=== PATIENT | female | born 1990 | race American Indian/Alaskan Native ===

== ENCOUNTER 2021-09-06 09:07 | Outpatient (CLI) | payer OTHER, SELFPAY ==
[2021-09-06 10:05] LABS: Alanine Aminotransferase 16 U/L (4-35); Albumin Level 4.7 g/dL (3.5-5.1); Alkaline Phosphatase 52 U/L (38-126); Anion Gap 8 mmol/L (8-16); Aspartate Amino Transferase 33 U/L (14-36); Bilirubin,Total 0.8 mg/dL (0.2-1.3); Blood Urea Nitrogen 11 mg/dL (7-17); Calcium 9.2 mg/dL (8.4-10.2); Carbon Dioxide 26 mmol/L (22-30); Chloride 106 mmol/L (98-107); Estimated Glomerular Filt Rate > 60; Glucose 97 mg/dL (65-110); Potassium 3.6 mmol/L (3.4-5.0); Sodium 140 mmol/L (137-145)
--- NOTE | 2021-09-06 10:05 | ECG_ITS ---
Measurements Intervals [place] Rate: 67 P: 66 MN: 117 QRS: 34 QRSD: 81 T: 41 QT: 348 QTc: 370 Interpretive Statements SINUS RHYTHM WITH SINUS ARRHYTHMIA WITH SHORT MN INTERVAL Borderline ECG NO PREVIOUS ECG AVAILABLE FOR COMPARISON Electronically Signed On 09-06-2021 12:19:46 CDT by Karl Hanks M.D.
[2021-09-06 10:07] LABS: Prothrombin Time 12.4 Seconds (11.1-14.7)
[2021-09-06 10:08] LABS: Add Urine Microscopic? YES; Appearance Urine Cloudy (Clear); Bilirubin Urine Negative (Negative); Blood Urine Negative (Negative); Color Urine Yellow (Yellow); Glucose Urine UA Negative (Negative); Hemoglobin A1C 4.9 % (<5.7); Ketones Urine Negative (Negative); Leukocyte Esterase Ur 1+ LEU/UL (NEGATIVE); Mucus Urine Rare /lpf; Nitrate Urine Negative (Negative); Partial Thromboplastin Time 25.6 SECONDS (22.3-36.8); Protein Urine Negative (Negative); RBC Urine 0-2 /hpf (0-2); Specific Grav Ur 1.011 (1.001-1.035); Squamous Epithelial Cell Urine Moderate /hpf (Few); Urobilinogen Urine Negative mg/dL (<2.0)
[2021-09-06 10:16] LABS: Basophils Percent Auto 0.6 % (0.2-1.2); Eosinophils Absolute Auto 0.1 K/mm3 (0-0.3); Eosinophils Percent Auto 2.9 % (0-4.4); Hematocrit 40.4 % (37.0-47.0); Hemoglobin 13.8 g/dL (12.0-15.0); Lymphocytes Absolute Auto 1.63 K/mm3 (0.9-3.2); Lymphocytes Percent Auto 33.5 % (18.3-44.2); Mean Corpuscular HGB Conc 34.2 g/dl (32-36); Mean Corpuscular Hemoglobin 31.9 pg (26-34); Mean Corpuscular Volume 93.5 fl (80-100); Mean Platelet Volume 10.6 fl (7.4-10.4); Monocytes Absolute Auto 0.3 K/mm3 (0.1-0.6); Neutrophils Absolute Auto 2.7 K/mm3 (1.3-6.7); Platelet Count Result 270 k/mm3 (150-375); Red Blood Count 4.32 M/mm3 (4.2-5.4); Red Cell Distribution Width 12.5 % (11.5-14.5); White Blood Count 4.9 K/mm3 (4.5-10.0)
[2021-09-06 10:21] LABS: Bacteria Urine Trace /hpf
[2021-09-06 10:23] LABS: Beta HCG Quantitative < 2.39 mIU/ML
[2021-09-06 10:36] LABS: Total Triiodothyronine (T3) 1.33 NG/ML (0.97-1.69)
[2021-09-06 10:45] LABS: HIV 1/2 Ab P24 Ag Result Negative (Negative)
== END 2021-09-06 09:08 | disposition home or self-care (01) ==
DX: Z01.818 Encounter for other preprocedural examination (principal)
CPT/HCPCS: 36415; 80053; 81001; 83036; 84436; 84443; 84480; 84702; 85025; 85610; 85730; 86703; 93005; G0432

== ENCOUNTER 2021-09-13 09:56 | Outpatient (CLI) | payer OTHER, SELFPAY ==
[2021-09-13 10:30] LABS: Add Urine Microscopic? YES; Appearance Urine Cloudy (Clear); Bilirubin Urine Negative (Negative); Blood Urine Negative (Negative); Color Urine Yellow (Yellow); Glucose Urine UA Negative (Negative); Ketones Urine Negative (Negative); Leukocyte Esterase Ur Negative LEU/UL (NEGATIVE); Mucus Urine Rare /lpf; Nitrate Urine Negative (Negative); Protein Urine Negative (Negative); Specific Grav Ur 1.024 (1.001-1.035); Squamous Epithelial Cell Urine Moderate /hpf (Few); Urobilinogen Urine Negative mg/dL (<2.0); WBC Urine 0-3 /hpf (0-3)
== END 2021-09-13 09:57 | disposition home or self-care (01) ==
DX: Z01.812 Encounter for preprocedural laboratory examination (principal)
CPT/HCPCS: 81001

== ENCOUNTER 2022-05-08 10:55 | Outpatient (CLI) | payer OTHER, SELFPAY ==
[2022-05-08 11:32] LABS: Basophils Percent Auto 0.2 % (0.2-1.2); Eosinophils Absolute Auto 0.1 K/mm3 (0-0.3); Eosinophils Percent Auto 1.5 % (0-4.4); Hematocrit 32.4 % (37.0-47.0); Hemoglobin 11.4 g/dL (12.0-15.0); Immature Granulocyte Absolute 0.03 K/mm3 (0.00-0.031); Immature Granulocyte Percent A 0.4 % (0-0.5); Lymphocytes Absolute Auto 1.64 K/mm3 (0.9-3.2); Lymphocytes Percent Auto 19.9 % (18.3-44.2); Mean Corpuscular HGB Conc 35.2 g/dl (32-36); Mean Corpuscular Hemoglobin 31.8 pg (26-34); Mean Corpuscular Volume 90.3 fl (80-100); Mean Platelet Volume 9.8 fl (7.4-10.4); Monocytes Absolute Auto 0.6 K/mm3 (0.1-0.6); Monocytes Percent Auto 6.9 % (2.6-8.5); Neutrophils Absolute Auto 5.9 K/mm3 (1.3-6.7); Neutrophils Percent Auto 71.1 % (45.5-73.1); Platelet Count Result 270 k/mm3 (150-375); Red Blood Count 3.59 M/mm3 (4.2-5.4); Red Cell Distribution Width 12.9 % (11.5-14.5); White Blood Count 8.2 K/mm3 (4.5-10.0)
[2022-05-08 12:27] LABS: HIV 1/2 Ab P24 Ag Result Negative (Negative)
[2022-05-08 13:06] LABS: Hepatitis B Surface Antigen Negative (Negative); Rubella IgG Antibody 54.3 IU/ML
[2022-05-08 15:31] LABS: Rapid Plasma Reagin Non-Reactive (NonReactive)
== END 2022-05-08 10:56 | disposition home or self-care (01) ==
LOC: ANHLAB 10:57
PROVIDERS: Visit Provider Student in an Organized Health Care Education/Training Program
DX: N94.89 Other specified conditions associated with female genital organs and menstrual cycle (principal)
CPT/HCPCS: 36415; 84702; 85025; 85660; 86592; 86644; 86703; 86747; 86762; 86787; 86850; 86900; 86901; 87086; 87340; G0432

== ENCOUNTER 2022-05-30 12:40 | Outpatient (CLI) | payer OTHER, SELFPAY ==
[2022-06-06 14:46] LABS: SMA 2.0 RISK VARIANT NOT DETECTED
[2022-06-12 14:11] LABS: SMA Results Received Yes
== END 2022-05-30 12:41 | disposition home or self-care (01) ==
LOC: ANHLAB 12:42
PROVIDERS: Visit Provider Student in an Organized Health Care Education/Training Program
DX: N94.89 Other specified conditions associated with female genital organs and menstrual cycle (principal)
CPT/HCPCS: 36415; 81329

== ENCOUNTER 2022-07-16 10:03 | Outpatient (CLI) | payer OTHER, SELFPAY ==
[2022-07-16 11:19] LABS: Hematocrit 30.6 % (37.0-47.0); Hemoglobin 10.4 g/dL (12.0-15.0); Mean Corpuscular Hemoglobin 32.2 pg (26-34); Mean Corpuscular Volume 94.7 fl (80-100); Mean Platelet Volume 9.8 fl (7.4-10.4); Platelet Count Result 261 k/mm3 (150-375); Red Blood Count 3.23 M/mm3 (4.2-5.4); Red Cell Distribution Width 13.3 % (11.5-14.5); White Blood Count 9.6 K/mm3 (4.5-10.0)
[2022-07-16 11:32] LABS: Glucose 1 Hour PP 50gm Dose 115 mg/dL
[2022-07-16 12:11] LABS: HIV 1/2 Ab P24 Ag Result Negative (Negative)
== END 2022-07-16 10:04 | disposition home or self-care (01) ==
LOC: ANHLAB 10:04
PROVIDERS: Visit Provider Student in an Organized Health Care Education/Training Program
DX: O09.90 Supervision of high risk pregnancy, unspecified, unspecified trimester (principal); Z3A.00 Weeks of gestation of pregnancy not specified
CPT/HCPCS: 36415; 82947; 85027; 86703; G0432

== ENCOUNTER 2022-08-22 07:03 | Observation (INO) | payer OTHER, SELFPAY ==
[2022-08-22 07:28] VITALS: BP 117/77; PULSE 83
[2022-08-22 07:30] VITALS: BP 105/85; PULSE 81
--- NOTE | 2022-08-22 07:41 | PM.OBTRLD ---
OB - Triage/Final Diagnosis Visit Information Date of evaluation: 08/22/22 Reason for evaluation: threatened labor Comments/Additional reasons for admission: I have assessed the risk for this patient, Mau Torres, and determined that she would benefit from observation care. Evaluation Vital signs: Vital Signs - 24 hr 08/22/22 07:28 08/22/22 07:30 Pulse Rate 83 81 Blood Pressure 117/77 105/85
[2022-08-22 07:45] VITALS: BP 114/78; PULSE 76
[2022-08-22 07:49] VITALS: BMI 28.5
--- NOTE | 2022-08-22 07:50 | OBADM ---
This patient, Mau Torres, admitted to the OB room OB Post 117 for observation. Patient/family oriented to hospital policies and general routines including ID bracelet, bed and alarms, visiting hours, pain management, procedures, bathroom and other care routines, personal items, smoking policy, room service/diet, and visiting hours. Patient/Family are encouraged to report perceived risks to care and to ask questions if they do not understand what they are told or what they should do. Pt. presents with reports of RLQ pain that is constant since Wednesday, began intermittently on . Pt. denies any falls or trauma, vaginal bleeding and leaking of fluid. States she might be having a contraction here or there but not sure. Pt. states she has been recently treated for yeast infection and has a second dose to take if needed. Urine collected and EFM X2 applied to monitor.
[2022-08-22 07:51] LABS: Appearance Urine Slightly Cloudy (Clear); Bilirubin Urine Negative (Negative); Blood Urine Negative (Negative); Color Urine Yellow (Yellow); Glucose Urine UA Negative (Negative); Ketones Urine Negative (Negative); Leukocyte Esterase Ur 3+ LEU/UL (Negative); Nitrate Urine Negative (Negative); Protein Urine Negative (Negative); Specific Grav Ur 1.025 (1.001-1.035); Urobilinogen Urine 0.2 mg/dL (<2.0)
[2022-08-22 07:58] LABS: Bacteria Urine Trace /hpf; Mucus Urine Rare /lpf; Squamous Epithelial Cell Urine Many /hpf (Few); WBC Urine 51-75 /hpf
[2022-08-22 08:00] VITALS: BP 125/75; PULSE 82
[2022-08-22 08:03] LABS: Add Urine Microscopic? YES
--- NOTE | 2022-08-22 08:15 | PC.NURSE ---
0618--Phone call to Dr. Yan re: pt's presence and reports of abdominal pain, assessment, and urine results. Orders to DC home with instructions for rest and hydration.
== END 2022-08-22 08:37 | disposition home or self-care (01) ==
PROVIDERS: Admitting Provider Student in an Organized Health Care Education/Training Program; Visit Provider Student in an Organized Health Care Education/Training Program
DX: O47.03 False labor before 37 completed weeks of gestation, third trimester (principal); O26.893 Other specified pregnancy related conditions, third trimester; R10.9 Unspecified abdominal pain; Z3A.34 34 weeks gestation of pregnancy
CPT/HCPCS: 81001; 87086; G0378; G0379

== ENCOUNTER 2022-09-23 10:59 | Inpatient (IN) | payer OTHER, SELFPAY ==
[2022-09-23] VITALS (77 sets, daily range): BP systolic 103–166; BP diastolic 63–139; PULSE 70–252; RESP 16–18; TEMP 36.4–37.2; O2SAT 91–100; BMI 30.8
[2022-09-23] MEDS: LACTATED RINGERS 1,000 ML 125 ML IV CONT ×2 (11:33→12:18)
[2022-09-23] MEDS: AMPICILLIN 2 GM/NS 100 ML 2 GM/100 ML BAG IVPB (11:33)
--- NOTE | 2022-09-23 11:48 | WPDHPUPDATE1 ---
History and Physical Update Update Date/Time: 09/23/22 11:48 32-year-old at 38w0d who presents in labor. she denies any vaginal bleeding or leakage of fluid. History and Physical has been reviewed, including an updated exam of the patient. There are NO changes in the patient's condition. Risks, benefits, and alternatives have been discussed and questions answered. Patient agrees to proceed with procedure. A/P: Admit to L&D Routine admission orders Rh positive GBS positive, will start antibiotics Cervix 6.5 cm Regular contractions on toco heart tones category 1 Expected management
[2022-09-23 11:54] LABS: Basophils Percent Auto 0.4 % (0.2-1.2); Eosinophils Absolute Auto 0.1 K/mm3 (0-0.3); Eosinophils Percent Auto 1.1 % (0-4.4); Hematocrit 36.8 % (37.0-47.0); Hemoglobin 12.1 g/dL (12.0-15.0); Immature Granulocyte Absolute 0.11 K/mm3 (0.00-0.031); Immature Granulocyte Percent A 1.1 % (0-0.5); Lymphocytes Absolute Auto 1.98 K/mm3 (0.9-3.2); Lymphocytes Percent Auto 19.4 % (18.3-44.2); Mean Corpuscular HGB Conc 32.9 g/dl (32-36); Mean Corpuscular Hemoglobin 32.6 pg (26-34); Mean Corpuscular Volume 99.2 fl (80-100); Mean Platelet Volume 10.5 fl (7.4-10.4); Monocytes Absolute Auto 0.9 K/mm3 (0.1-0.6); Monocytes Percent Auto 8.7 % (2.6-8.5); Neutrophils Absolute Auto 7.1 K/mm3 (1.3-6.7); Neutrophils Percent Auto 69.3 % (45.5-73.1); Platelet Count Result 197 k/mm3 (150-375); Red Blood Count 3.71 M/mm3 (4.2-5.4); Red Cell Distribution Width 13.5 % (11.5-14.5); White Blood Count 10.2 K/mm3 (4.5-10.0)
--- NOTE | 2022-09-23 12:19 | WPDANESEPP ---
Anes - Eval Pre Procedure Procedure: labor epidural Date/Time: 09/23/22 12:20 Preop Diagnosis: labor pain Pre Op Diagnosis: contractions Patient Data Age: 32 Gender: F Height: Weight: Last Vital Signs Pulse 78 09/23/22 12:15 BP 137/108 H 09/23/22 12:15 O2 Del Method Room Air 09/23/22 11:40 Allergies Allergy/AdvReac Type Severity Reaction Status Date / Time coconut oil Allergy Severe THROAT Verified 09/12/22 14:32 SWELLING,ITCHING clindamycin Allergy Intermediate Rash Verified 09/12/22 14:32 tramadol Allergy Hallucinati Verified 09/12/22 14:51 ng SHELLFISH Allergy Severe THROAT Uncoded 09/10/22 10:19 SWELLING,ITCHING Home Medications Medication Instructions Recorded Confirmed Type prenat.vits,kehinde,zon-cznn-layjw 1 tablet PO DAILY #30 tabs 07/22/22 09/23/22 Rx montelukast 10 mg tablet 10 mg PO DAILY #30 tabs 08/21/22 09/23/22 Rx (Singulair) ondansetron HCl 4 mg tablet 4 mg PO Q6H PRN nausea and 08/21/22 09/23/22 Rx vomiting #30 tabs albuterol sulfate 90 mcg/actuation 2 puff inhalation QID PRN Wheezing 09/12/22 09/12/22 History aerosol inhaler Laboratory Tests 09/23/22 09/23/22 11:30 11:30 WBC 10.2 K/mm3 H K/mm3 (4.5-10.0) RBC 3.71 M/mm3 L M/mm3 (4.2-5.4) Hgb 12.1 g/dL g/dL (12.0-15.0) Hct 36.8 % L % (37.0-47.0) MCV 99.2 fl fl (80-100) MCH 32.6 pg pg (26-34) MCHC 32.9 g/dl g/dl (32-36) RDW 13.5 % % (11.5-14.5) Plt Count 197 k/mm3 k/mm3 (150-375) MPV 10.5 fl H fl (7.4-10.4) Immature Gran % (Auto) 1.1 % H % (0-0.5) Neut % (Auto) 69.3 % % (45.5-73.1) Lymph % (Auto) 19.4 % % (18.3-44.2) Butts % (Auto) 8.7 % H % (2.6-8.5) Eos % (Auto) 1.1 % % (0-4.4) Baso % (Auto) 0.4 % % (0.2-1.2) Lymph # (Auto) 1.98 K/mm3 K/mm3 (0.9-3.2) Butts # (Auto) 0.9 K/mm3 H K/mm3 (0.1-0.6) Eos # (Auto) 0.1 K/mm3 K/mm3 (0-0.3) Baso # (Auto) 0.0 K/mm3 K/mm3 (0.0-0.1) Abs Immat Gran (auto) 0.11 K/mm3 H K/mm3 (0.00-0.031) Absolute Neuts (auto) 7.1 K/mm3 H K/mm3 (1.3-6.7) Absolute Nucleated RBC 0.0 K/mm3 K/mm3 (0.0-0.012) Nucleated RBC % 0.0 % % (0.0-0.2) RPR Pending Patient hx anesthesia problems: none Family hx anesthesia problems: none Results Review: All pre-operative results and documents have been reviewed as part of the pre-operative evaluation. [facility] Past Medical History Medical History Suppression of menses Surgical History Surgical History H/O breast augmentation Family History Family History Son Asthma Social History Social History Smoking status: Never smoker Second hand tobacco smoke exposure: No Alcohol intake: current Alcohol use details: occasionally Substance use: never Lack of Transportation: No Lack of Food: Never True Current Housing: I Have Housing Concerned About Future Housing: No Difficulty Paying Gas/Electric Bills: No Difficulty Paying for Meds: No Currently Unemployed: No Education: High School Diploma/GED Difficulty w/ Childcare or Family Care: No Spiritual care concerns: No Exam Day of Procedure 09/23/22 12:20 Patient weight: normal Lungs: clear to auscultation and normal air movement Airway: Mallampati scale Neurological: alert and oriented
[2022-09-23] MEDS: OXYTOCIN 30 UNITS/NS 500 ML 30 UNITS/500 ML BAG 999 UNITS IV CONT (15:15)
--- NOTE | 2022-09-23 15:19 | PM.OBPRVD ---
OB - Delivery Note Procedure Procedure: Patient pushed for a precipitous spontaneous vaginal delivery by the RN. Upon entering the room, the fetus was in the warming bed. The patient was resting comfortably. The umbilical cord blood had already been collected. The placenta delivered spontaneously and was noted to be intact. The perineum was inspected and there were no lacerations noted. The uterus was firm and good hemostasis was noted. The patient and fetus were stable in the delivery room. Delivery augmentation: Rupture of Membranes Delivery monitor: External FHT Route of delivery: Episiotomy description: None Laceration Description: None Specimen: No Anesthesia type: Epidural Disposition: Floor () Complications: No immediate complications Baby Date of : 09/23/22 Time of : 15:00 Weeks of gestation at delivery: 38 Infant gender: Female Weight (pounds): 5 Weight (ounces): 14 presentation: vertex Placenta delivery description: Spontaneous Cord Vessel Description: 3 Vessels score one minute: 9 score five minutes: 9
[2022-09-23] MEDS: OXYTOCIN 30 UNITS/NS 500 ML 30 UNITS/500 ML BAG 125 UNITS IV CONT (15:49)
[2022-09-23] MEDS: ONDANSETRON INJ 4 MG/2 ML VIAL IV PUSH (17:40)
--- NOTE | 2022-09-23 18:04 | OBPPTRN ---
Patient transferred to post room #281 via w/c. Support person present. Oriented to unit, room, information board, rooming in, admission packet and security measures. Patient verbalizes understanding.
[2022-09-23] MEDS: ACETAMINOPHEN 325 MG TABLET 650 MG PO (20:00)
[2022-09-23] MEDS: IBUPROFEN 600 MG TABLET PO (22:35)
[2022-09-24] MEDS: ACETAMINOPHEN 325 MG TABLET 650 MG PO ×3 (02:00→23:20)
[2022-09-24] MEDS: IBUPROFEN 600 MG TABLET PO (04:15)
--- NOTE | 2022-09-24 09:29 | WPDANLDPN2 ---
Anes-Prog Note L&D Date/Time: 09/24/22 09:29 Comfortable throughout: labor and delivery Neuraxial method: epidural Epidural/Spinal procedure site: tender Neuro status: Neuro function grossly intact. Cardiovascular status: normal Respiratory status: normal Airway patency: baseline Mental status: baseline Post-Op hydration status: normal Vital Signs: Last Vital Signs Temp 36.6 C 09/23/22 23:50 Pulse 76 09/23/22 23:50 Resp 18 09/23/22 23:50 BP 132/84 09/23/22 23:50 Pulse Ox 100 09/23/22 15:53 O2 Del Method Room Air 09/23/22 19:00 Pain score (VAS): 3/10 I/O: Intake & Output 09/23/22 09/24/22 09/24/22 23:59 07:59 15:59 Output Total 900 Balance -900 Post-procedural complaints: none Patient feedback: Patient satisfied with anesthetic care.
--- NOTE | 2022-09-24 09:30 | PC.NURSE ---
PT introductions made and plan of care discussed per post , pain management, breast feeding, daily care activities. PT and family both recipient of such instructions and no barriers to learning identified at this time. PT received such instructions via one to one discussion, mom baby care guide and demonstrations this shift. PT verbalized understanding of such care.
[2022-09-24 10:00] VITALS: BP 128/86; PULSE 81; RESP 18; TEMP 36.6; O2SAT 99
--- NOTE | 2022-09-24 10:35 | PM.OBDSVD ---
DS: Admitting Diagnosis Discharge Date 09/25/22 Admitting Diagnosis intrauterine at term DS: Discharge Diagnosis Discharge Diagnosis (1) Supervision of high risk , unspecified, unspecified trimester: Code(s): O09.90 - Supervision of high risk , unspecified, unspecified trimester Status: Acute OB - DS: Summary Hospital Course Hospital Course: 32-year-old who presented at 38 weeks 0 days in labor. Labor progressed to a spontaneous vaginal delivery. Patient had precipitous nurse delivery in the bed. Patient's course was uncomplicated. She was discharged home on day 1 OB Procedures : None OB Procedures Intrapartum: Spontaneous Vag Delivery OB Procedures: : None Status at Discharge Functional status at discharge: independent ambulation Overall status at discharge: patient is back to baseline Time Spent with Patient Time attestation: Total time spent providing and/or coordinating discharge services: Time spent: Less than 30 minutes Exam Const: General: comfortable and no acute distress Resp: Effort & Inspection: normal respiratory effort Auscultation: clear to auscultation bilaterally Cardio: Rate: regular rate GI: GI Palp: Yes Soft to palpation Auscultation: normal bowel sounds Other: Fundus firm below umbilicus Psych: Appearance: grossly normal Mental Status: mental status grossly normal Affect: normal affect DS: Data Data Completed and Pending Labs on day of discharge: Labs from last 24 hours 09/23/22 09/23/22 09/23/22 11:33 11:30 11:30 WBC 10.2 H RBC 3.71 L Hgb 12.1 Hct 36.8 L MCV 99.2 MCH 32.6 MCHC 32.9 RDW 13.5 Plt Count 197 MPV 10.5 H Immature Gran % (Auto) 1.1 H Neut % (Auto) 69.3 Lymph % (Auto) 19.4 [place] % (Auto) 8.7 H Eos % (Auto) 1.1 Baso % (Auto) 0.4 Lymph # (Auto) 1.98 [place] # (Auto) 0.9 H Eos # (Auto) 0.1 Baso # (Auto) 0.0 Abs Immat Gran (auto) 0.11 H Absolute Neuts (auto) 7.1 H Absolute Nucleated RBC 0.0 Nucleated RBC % 0.0 RPR Pending Blood Type B Positive Antibody Screen Negative Discharge Plan Discharge Discharging Clinician: Xavier Yan Patient Disposition: Home, Self-Care Activity: as tolerated and pelvic rest Diet: as tolerated Patient Instructions: Antibiotic Form, Vaginal Delivery (DC) Stand Alone Forms: General Discharge Information Follow-up/Referrals: Xavier Yan MD [Physician] - Discharge Medications: New ibuprofen 600 mg tablet 600 mg PO Q6H PRN (Reason: pain) Qty: 30 0RF acetaminophen 500 mg tablet 500 mg PO Q6H PRN (Reason: pain) Qty: 30 0RF Continued albuterol sulfate 90 mcg/actuation Hfa Aerosol Inhaler 2 puff INHALATION QID PRN (Reason: Wheezing) prenat.vits,kehinde,utv-flko-afzkp Tablet 1 tablet PO DAILY Qty: 30 2RF montelukast [Singulair] 10 mg tablet 10 mg PO DAILY Qty: 30 2RF ondansetron HCl 4 mg tablet 4 mg PO Q6H PRN (Reason: nausea and vomiting) Qty: 30 1RF Date of admission: 09/23/22 10:59 Primary Care Provider: PHYSICIAN,RAIL BONDER Admitting Provider: Xavier Yan Attending physician on admission: Xavier Yan Condition: Stable
[2022-09-24] MEDS: MULTIVIT/MIN/PREN/FOL AC/IRON TABLET 1 TAB PO (10:38)
[2022-09-24] MEDS: HYDROcodone/acetaminophen (*CRX) 5-325 MG TABLET 1 TAB PO (10:38)
[2022-09-24] MEDS: POLYSACCHARIDE IRON COMPLEX 150 MG CAPSULE PO (10:39)
[2022-09-24] MEDS: DOCUSATE SODIUM 100 MG CAPSULE PO (10:39)
[2022-09-24] MEDS: MONTELUKAST SODIUM 10 MG TABLET PO ×2 (10:40→20:22)
[2022-09-24] MEDS: NAPROXEN 500 MG TABLET PO ×2 (10:41→20:22)
[2022-09-24 12:38] LABS: Hematocrit 33.2 % (37.0-47.0)
--- NOTE | 2022-09-24 13:46 | P.PNOB_ITS ---
OB - PN: Subj Subjective Date/time seen: 09/24/22 13:46 Patient comments: no complaints, pain well controlled and tolerating diet [place] feeding status: exclusively breast feeding Narrative: patient doing well this AM. No complaints. Pain is well controlled. She reports minimal bleeding. She is ambulating and voiding without difficulty. She is tolerating PO. She denies N/V, fever, chills. OB - PN: Obj Data Labs 09/24/22 12:21 Labs: Laboratory Results - last 24 hr 09/24/22 12:21 Hgb 11.0 L Hct 33.2 L OB - PN A/P Plan day: 1 Plan: routine care Comments: patient doing well H/H stable afebrile, vital signs stable Patient would like to stay 1 more night asking to be discharged tomorrow continue routine care Time Spent With Patient Time: Total time spent is greater than 50% in coordination of care (as documented) at patient's floor/unit and/or counseling patient: Time with patient: less than 15 minutes Review of Systems Review of Systems: All systems reviewed & are unremarkable except as noted in HPI and below Exam Const: General: comfortable and no acute distress Resp: Effort & Inspection: normal respiratory effort Cardio: Rate: regular rate GI: GI Palp: Yes Soft to palpation and No Tenderness to palpation present (GI) Auscultation: normal bowel sounds Other: fundus firm and below umbilicus. Psych: Affect: normal affect
[2022-09-24 15:09] LABS: Rapid Plasma Reagin Non-Reactive (NonReactive)
--- NOTE | 2022-09-24 16:26 | PC.NURSE ---
[id number] Introductions were made, then consulted with patient to assess needs related to . Mother led the conversation with her?plans to feed?her infant and the?experience so far. Resources provided for inpatient and outpatient services with the feeding sheet, mom/baby guide and name written on the white board. Mother voiced understanding of information and requested assistance. Mother works well with her with encouragement and education. Encouraged understanding of the benefits of skin to skin (demonstrating unwrapping infant and placing upright on her chest), stimulating with massage touch, changing positions to encourage wakefulness, how to watch for early feeding cues, responsive feeding, feeding on demand (aiming for 8-12 times in 24 hours, about every 2-3 hours), milk production, building/maintaining a milk supply, duration of feeding, signs of adequate intake/output and how to record on the feeding sheet. Reviewed positioning and ear, shoulder, hip alignment, supporting the breast to facilitate a deep latch, asymmetrical latch (off-center), leading with the chin with a big, open, wide gape and body close to mother. Infant was encouraged to , however; was sleepy and reluctant. Breast pump provided prior to meeting RN due to ineffective . Instructions given on cleaning, care, usage, that there should be no pain, pumping schedule for milk production, collection, and storage of human milk. Mother is encouraged to record pumping schedule on the feeding sheet. Patient was assessed for correct placement, flange size, to pump for comfort and nipple stretching/stimulation for adequate milk production every 3 hours (8 times in 24 hours) 1-2 times at night. Reviewed the risks of her breast surgery in 2021 that has anchor incision scars and scars from an infection on the right areola. Mother is able to express colostrum with pumping and that is encouraging. Mother voiced understanding of skin to skin, stimulating with massage touch, responsive feedings, hand expressed colostrum, talking to infant to encourage if it has been 2 -2.5 hours since the start of the last , to call if does not latch, or if there is discomfort with . Resources provided for inpatient/outpatient with the feeding sheet and the mom/baby guide. Reported to the primary RN. [id number] Mother requested a consult for assistance with . Reviewed comfortable positioning, adjusting and the breast to facilitate an effective latch. Infant latched optimally to the right breast with football positioning. Mother voiced understanding of skin to skin, stimulating with massage touch, responsive feedings, hand expressed colostrum, talking to to encourage if it has been 2 -2.5 hours since the start of the last , to call if does not latch, or if there is discomfort with . Resources provided for inpatient/outpatient with the feeding sheet and the mom/baby guide. Reported to the primary RN.
[2022-09-24 20:20] VITALS: BP 126/83; PULSE 84; RESP 18; TEMP 36.8
[2022-09-25] MEDS: ACETAMINOPHEN 325 MG TABLET 650 MG PO ×2 (05:00→12:59)
[2022-09-25 07:30] VITALS: BP 142/87; PULSE 72; RESP 16; TEMP 37; O2SAT 100
[2022-09-25] MEDS: MULTIVIT/MIN/PREN/FOL AC/IRON TABLET 1 TAB PO (09:26)
[2022-09-25] MEDS: DOCUSATE SODIUM 100 MG CAPSULE PO (09:26)
[2022-09-25] MEDS: NAPROXEN 500 MG TABLET PO (09:27)
--- NOTE | 2022-09-25 12:38 | PC.NURSE ---
[id number] Mother led the conversation with her experience and plan to feed her so far and her ability to independently latch optimally without discomfort and supplement. Reminded parents to use good handwashing technique to prevent infection. Reviewed with mother the importance of practicing , to protect the milk supply with pumping if infant receives a bottle, and the risk/benefits with supplementing. Mother is feeding appropriately for growth of infant and understands stimulating to eat if needed. has had appropriate feedings in the last 24 hours meets the outcomes for weight, output and jaundice at this time. Mother states she is confident to continue feed her infant at home, when to call for assistance and denies any additional assistance or education at this time. Reinforced understanding of milk production, transition of milk, signs of adequate intake, transition of stool, prevention/relief of engorgement, responsive watching for feeding cues, the different methods of stimulating to breastfeed 2-3 hours after the start of the last feeding, community resources, and when to call a provider using the resource of the mom and baby guide. Mother voiced understanding of the education shared. Reported to the primary RN.
[2022-09-28 10:44] VITALS: BP 138/90; PULSE 75; RESP 18; TEMP 36.8; O2SAT 73
== END 2022-09-25 13:38 | disposition home or self-care (01) | DRG 560 ==
LOC: ANHLDR 11:20 → ANHOB2 18:05
PROVIDERS: Admitting Provider Student in an Organized Health Care Education/Training Program; Visit Provider Student in an Organized Health Care Education/Training Program
DX: O99.824 Streptococcus B carrier state complicating childbirth (principal); Z37.0 Single live birth; Z3A.38 38 weeks gestation of pregnancy
CPT/HCPCS: 36415; 85014; 85018; 85025; 86592; 86850; 86900; 86901; A9270; J0290; J2405; J2590; J2795; J7120

== ENCOUNTER 2023-12-02 13:31 | Outpatient (CLI) | payer OTHER, SELFPAY ==
[2023-12-02 15:54] LABS: Beta HCG Quantitative < 2.39 mIU/ML
== END 2023-12-02 13:32 | disposition home or self-care (01) ==
LOC: ANHLAB 13:33
PROVIDERS: Visit Provider Student in an Organized Health Care Education/Training Program
DX: N92.6 Irregular menstruation, unspecified (principal)
CPT/HCPCS: 36415; 84702